=== PATIENT | male | born 1960 | race Caucasian/White ===

== ENCOUNTER 2020-12-27 08:31 | Outpatient (CLI) | payer OTHER, SELFPAY | END 2020-12-27 08:32 | disposition home or self-care (01) | LOC: ANHCOVIDVC 08:31 | PROVIDERS: PCP Family Medicine | DX: Z23 Encounter for immunization (principal) | CPT/HCPCS: 0001A; 91300 ==

== ENCOUNTER 2021-01-17 08:29 | Outpatient (CLI) | payer OTHER, SELFPAY | END 2021-01-17 08:30 | LOC: ANHCOVIDVC 08:29 | PROVIDERS: PCP Family Medicine | DX: Z23 Encounter for immunization (principal) | CPT/HCPCS: 0002A; 91300 ==

== ENCOUNTER 2022-12-01 09:52 | Outpatient (CLI) | payer OTHER, SELFPAY ==
[2022-12-01 12:32] LABS: Kit Draw Collected
== END 2022-12-01 09:53 | disposition home or self-care (01) ==
LOC: ANHGOSHLAB 09:53
PROVIDERS: PCP Family Medicine; Visit Provider Family Medicine
DX: E78.2 Mixed hyperlipidemia (principal); R53.83 Other fatigue; R73.03 Prediabetes
CPT/HCPCS: 36415

== ENCOUNTER → 2023-12-14 11:20 | Outpatient (CLI) | payer OTHER, SELFPAY ==
--- NOTE | ~2023-12-14 | XR_ITS ---
Clinical Indication: Subacute cough PA and lateral views of the chest: Comparison: None Findings: The lungs are clear, without evidence of focal consolidation or pleural effusion. There is elevation of the left hemidiaphragm. Cardiomediastinal silhouette is within normal limits. Bones and soft tissues are unremarkable. Impression: Clear lungs. Elevation of left hemidiaphragm. Reviewed, dictated and finalized at location . CTION CONTROL RN Impression: Clear lungs. Elevation of left hemidiaphragm.
== END ==
PROVIDERS: PCP Family Medicine; Visit Provider Family Medicine
DX: J98.6 Disorders of diaphragm (principal); R05.2 Subacute cough
CPT/HCPCS: 71046

== ENCOUNTER 2025-03-22 13:29 | Outpatient (CLI) | payer OTHER, SELFPAY ==
--- NOTE | ~2025-03-22 | US_ITS ---
US arterial ankle brachial ind INDICATION: Peripheral vascular disease TECHNIQUE: Segmental pressures and plethysmographic and Doppler waveforms of the brachial and lower e xtremity arteries were obtained. COMPARISON: None. FINDINGS: Right and left brachial artery pressures of 128 mm Hg and 136 mm Hg, respectively, are concordant (no rmal difference <= 30 mmHg). The right ankle-brachial index (SHALINI) is 1.29 (normal >= 0.9-1.0). The right great toe-brachial index (TBI) is 0.66 (normal >= 0.60). The left SHALINI is 1.22. The left TBI is 0.54. IMPRESSION: 1. Normal ankle-brachial indices. 2: Diminished left toe brachial index consistent with mild peripheral arterial disease. Reviewed, dictated and finalized at location A.
== END 2025-03-22 13:30 | disposition home or self-care (01) ==
PROVIDERS: PCP Family Medicine; Visit Provider Family Medicine
DX: R93.6 Abnormal findings on diagnostic imaging of limbs (principal); R09.89 Other specified symptoms and signs involving the circulatory and respiratory systems; R25.2 Cramp and spasm; G57.93 Unspecified mononeuropathy of bilateral lower limbs
CPT/HCPCS: 93922

== ENCOUNTER 2025-06-04 08:05 | Day surgery (SDC) | payer OTHER, SELFPAY ==
[2025-01-23 13:41] VITALS: BMI 32.1
[2025-06-04 09:05] VITALS: BP 145/98; PULSE 70; RESP 18; TEMP 37; O2SAT 94
[2025-06-04] MEDS: LACTATED RINGERS 1,000 ML 150 ML IV CONT (09:30)
[2025-06-04 09:35] VITALS: BMI 30.2
--- NOTE | 2025-06-04 09:53 | P.PNAN_ITS ---
Anes - Initial Pre Proc Eval Procedure: Operation Date: 06/04/25 10:00 Proposed Procedures p Screening Colonoscopy - Primo Tong MD Date/Time: 06/04/25 09:53 Surgeon: Primo Tong MD Pre Op Diagnosis: Neoplasm Screening Patient Data Age: 64 Gender: M Height: 1.85 m Weight: 103.9 kg Allergies Allergy/AdvReac Type Severity Reaction Status Date / Time lithium AdvReac Severe severe gi Verified 06/04/25 08:57 upset/pain Home Medications ?Medication ?Instructions ?Recorded ?Confirmed ?Type nsvwehpsixhp-sbabqbfk-xzwurk tablet 1 tablet PO DAILY 11/25/21 06/04/25 History omega 5-gtd-vrq-fish oil 1,000 mg 1 cap PO DAILY 11/25/21 06/04/25 History (120 mg-180 mg) capsule (Fish Oil) atorvastatin 10 mg tablet See Rx Instructions .Route 12/01/24 06/04/25 Rx .COMPLEX #90 tabs esomeprazole magnesium 40 mg 40 mg PO DAILY #90 caps 01/04/25 06/04/25 Rx capsule,delayed release (Nexium) cholecalciferol (vitamin D3) 50 50 mcg PO DAILY #30 caps 01/24/25 06/04/25 Rx mcg (2,000 unit) capsule cyanocobalamin (vitamin B-12) 1,000 mcg PO DAILY #30 caps 01/24/25 06/04/25 Rx 1,000 mcg capsule Patient hx anesthesia problems: none Family hx anesthesia problems: none Results Review: All pre-operative results and documents have been reviewed as part of the pre- operative evaluation. [facility] Past Medical History Medical History History of measles Blood type A+ Globus sensation Flatulence, eructation and gas pain Allergic rhinitis Surgical History Surgical History History of eye surgery (~1979) right History of carpal tunnel release Rt 1991, Lt 2018 Family History Family History Father Cerebrovascular accident, Onset Age: 56 Family history of malignant neoplasm of esophagus, Onset Age: 66 Alcohol abuse Other Hypertension Social History Social History Smoking status: Never smoker Alcohol intake: current Drinks per week: 1 Alcohol use details: socially Substance use: never Substance use type: does not use Do You Feel Safe in your Home?: Yes Lack of Transportation: No Lack of Food: Never True Current Housing: I Have Housing Concerned About Future Housing: No Difficulty Paying Gas/Electric Bills: No Difficulty Paying for Meds: No Currently Unemployed: No Education: Associate Degree Difficulty w/ Childcare or Family Care: No Living arrangements: with family Occupation/Education: unemployed Additional occupation/education comments: forcibly retired Gender identity (if verbalized by the patient): Male Sexual Orientation (if Verbalized by the Patient): Straight or Heterosexual Spiritual care concerns: No Anes - Eval Final PreProcedure Day of Procedure 06/04/25 09:53 Heart: regular rate and rhythm Lungs: clear to auscultation Airway: Mallampati scale class 1 Last oral intake: >/= 8 hours ASA classification: II Anesthetic plan: proceed Anesthesia type and monitoring: monitored anesthesia care Results Review: All pre-operative results and documents have been reviewed as part of the pre- operative evaluation. Informed Consent: The patient's anesthetic plan and its attendant risks and benefits were discussed with the patient/family/POA. Questions were solicited and answers provided to the satisfaction of the patient/family/POA.
--- NOTE | 2025-06-04 10:09 | HP_ITS ---
This report was moved to the correct visit on 06/06/2025. The original report was signed by Primo Tong MD on 06/04/25 1009. H&P: HPI History of Present Illness Date/Time: 06/04/25 10:08 Chief Complaint: History of colon polyps Narrative: The patient has a history of colonic polyps, the last colonoscopy was approximately 5 years ago Review of Systems Review of Systems: All systems reviewed & are unremarkable except as noted in HPI and below PMFSH Past Medical History Medical History History of measles Blood type A+ Globus sensation Flatulence, eructation and gas pain Allergic rhinitis Surgical History Surgical History History of eye surgery (~1979) rightHistory of carpal tunnel release Rt 1991, Lt 2018 Family History Family History Father Cerebrovascular accident, Onset Age: 56 Family history of malignant neoplasm of esophagus, Onset Age: 66 Alcohol abuseOther Hypertension Social History Social History Smoking status: Never smoker Alcohol intake: current Drinks per week: 1 Alcohol use details: socially Substance use: never Substance use type: does not use Do You Feel Safe in your Home?: Yes Lack of Transportation: No Lack of Food: Never True Current Housing: I Have Housing Concerned About Future Housing: No Difficulty Paying Gas/Electric Bills: No Difficulty Paying for Meds: No Currently Unemployed: No Education: Associate Degree Difficulty w/ Childcare or Family Care: No Living arrangements: with family Occupation/Education: unemployed Additional occupation/education comments: forcibly retired Gender identity (if verbalized by the patient): Male Sexual Orientation (if Verbalized by the Patient): Straight or Heterosexual Spiritual care concerns: No Meds Home Medications and Allergies Home Medications ?Medication ?Instructions ?Recorded ?Confirmed ?Type skfzbhrxcphl-ymtsnzud-mhmsmt tablet 1 tablet PO DAILY 11/25/21 06/04/25 History omega 8-eym-aow-fish oil 1,000 mg 1 cap PO DAILY 11/25/21 06/04/25 History (120 mg-180 mg) capsule (Fish Oil) atorvastatin 10 mg tablet See Rx Instructions .Route 12/01/24 06/04/25 Rx .COMPLEX #90 tabs esomeprazole magnesium 40 mg 40 mg PO DAILY #90 caps 01/04/25 06/04/25 Rx capsule,delayed release (Nexium) cholecalciferol (vitamin D3) 50 50 mcg PO DAILY #30 caps 01/24/25 06/04/25 Rx mcg (2,000 unit) capsule cyanocobalamin (vitamin B-12) 1,000 mcg PO DAILY #30 caps 01/24/25 06/04/25 Rx 1,000 mcg capsule Allergies Allergy/AdvReac Type Severity Reaction Status Date / Time lithium AdvReac Severe severe gi Verified 06/04/25 08:57 upset/pain Exam Const: General: cooperative and healthy appearing Resp: Effort & Inspection: normal respiratory effort and able to speak in complete sentences Auscultation: clear to auscultation bilaterally Cardio: Rate: regular rate Rhythm: regular rhythm GI: Inspection: normal to inspection GI Palp: No No hepatosplenomegaly present Auscultation: normal bowel sounds Rectal Exam: deferred Skin: General skin exam: normal color Psych: Appearance: grossly normal Mental Status: mental status grossly normal Assessment and Plan Assessment and plan (1) Personal history of colonic polyps: Code(s): Z86.010 - Personal history of colon polyps Status: Acute Assessment and Plan: The patient is deemed a good candidate for the procedure. Consent signed. Will proceed. Please be advised this is a medical document. It is intended for hrrc-uh-undg communication. It is written in medical language and may contain unfamiliar abbreviations or verbiage. Medical documents are intended to carry relevant information, facts as evident, and the clinical opinion of the practitioner at the time of the encounter. This report may have been done utilizing a voice recognition system. Attempts have been made to correct errors. However, there may be uncorrected grammatical, spelling, and recognition errors present. The file time of this note does not necessarily represent the time the patient was seen. Report Initialized date/time: Primo Tong MD 06/04/251008 Electronically signed by: Primo Tong MD 06/04/251008
--- NOTE | 2025-06-04 10:26 | WPDANESPN ---
Anes - Prog Note Post-Op Date/Time: 06/04/25 10:26 Pain Score (VAS): no Patient Feedback: Patient satisfied with anesthetic care.
--- NOTE | 2025-06-04 10:35 | WPDANESPN ---
Anes - Prog Note Post-Op Date/Time: 06/04/25 10:35 Pain Score (VAS): no Patient Feedback: Patient satisfied with anesthetic care.
--- NOTE | 2025-06-04 10:40 | WPDANESPN ---
Anes - Prog Note Post-Op Date/Time: 06/04/25 10:40 Pain Score (VAS): no Patient Feedback: Patient satisfied with anesthetic care.
[2025-06-04 10:46] VITALS: BP 127/81; PULSE 71; RESP 16; O2SAT 92
[2025-06-04 10:56] VITALS: BP 130/86; PULSE 67; RESP 16; O2SAT 96
[2025-06-04 11:06] VITALS: BP 136/86; PULSE 61; RESP 16; O2SAT 96
== END 2025-06-04 11:18 | disposition home or self-care (01) ==
PROVIDERS: PCP Family Medicine; Visit Provider Internal Medicine Gastroenterology
PROC: 0DJD8ZZ Inspection of Lower Intestinal Tract, Via Natural or Artificial Opening Endoscopic (ICD-10-PCS; CPT 45378; principal; 2025-06-04 10:00)
DX: Z12.11 Encounter for screening for malignant neoplasm of colon (principal); D12.2 Benign neoplasm of ascending colon; D12.3 Benign neoplasm of transverse colon; K63.5 Polyp of colon; K57.30 Diverticulosis of large intestine without perforation or abscess without bleeding
CPT/HCPCS: 45385

== ENCOUNTER 2025-06-04 10:54 | Outpatient (NON) | payer OTHER, SELFPAY ==
--- NOTE | 2025-06-04 | S_PTH ---
PATIENT: Robe Ontiveros LOC: [facility] U#:[id number] AGE/SX: 64/M ROOM: RE06/04/[address]: Primo Tong MD : 1960 BED: DIS: 06/04/2025 SPEC #: [id number] RECD: 06/05/25 08:44 STATUS: LIZZY REQ #: [id number] FREDRICK: 06/04/25 00:[address]: Primo Tong DEPT: [facility] Surgical RECD BY: Arely Kirk ENTERED: 06/05/25 08:46 SP TYPE: Surgical OTHR DR: Berta Fernandes MD Tissues: A - Colon Polypectomy B - Colon Polypectomy Procedures: Hematoxylin and Eosin Stain Gross and Microscopic Level 4 Comments: @ Originally on account #[id number] Req #[id number]
--- OUTSIDE RECORDS SUMMARY | 2025-06-05 11:45 | XMS_ITS | Patient Health Record ---
Author Organization [facility] [employer] Address [address] [place] [address] Care Team Providers Care Pasta Maker Name Role Phone Louis Tello Unavailable [phone] Reason For Referral No Information Medications Medication SIG (Take, Route, Frequency, Duration) Notes Start Date End Date Status Arthur Carbonate 150 MG Oral 08/21/2020 Active Fish Oil *Pick strength-form from [employer] for eRX* 08/21/2020 Active Atorvastatin Calcium 10 MG Oral 08/21/2020 Active Escitalopram Oxalate 5 MG Oral 08/21/2020 Active Immunizations Vaccine Route Administration Date Status Comme nts Influenza virus vaccine, quadrivalent (IIV4), split virus, 0.25 mL dosage Unknown 08/15/2019 Administered Plan Of Treatment No Information Insurance Providers Payer Name Payer Address Payer Phone Subscriber Number Group Number Insured Name Patient Relationship to Insured Coverage Start Date Coverage End Date [facility] [address] [place] [phone] [id number] ADELIA WATTS Spouse - patient is the spouse of the insured Medical (General) History Surgical History Surgery Date(Month/Year) Carpal tunnel surgery (26261)
== END 2025-06-04 10:55 | disposition home or self-care (01) ==
LOC: ANHLAB 06-05 10:55
PROVIDERS: PCP Family Medicine; Visit Provider Internal Medicine Gastroenterology
DX: D12.2 Benign neoplasm of ascending colon (principal); K63.89 Other specified diseases of intestine; K63.5 Polyp of colon; D12.3 Benign neoplasm of transverse colon
CPT/HCPCS: 88305

== ENCOUNTER 2025-06-30 17:35 | Emergency (ER) | payer OTHER, SELFPAY ==
--- NOTE | ~2025-06-30 | XR_ITS ---
EXAMINATION: XR ankle RT min 3V DATE: 06/30/2025 17:58 INDICATION: Postmenopausal lateral right ankle pain and swelling TECHNIQUE: Anteroposterior, oblique, mortise, and lateral views of the right ankle were obtained. COMPARISON: None. FINDINGS: Alignment is normal. No fracture. Joint spaces are well maintained. There are a couple tiny heterotopic ossicles near the tips of the medial and lateral malleoli consistent with sequela of chronic ankle sprains. Small Achilles and plantar calcaneal spurs. No ankle joint effusion. Soft tissue swelling about the lateral malleolus. IMPRESSION: 1. No acute osseous abnormality. Reviewed, dictated and finalized at location A.
[2025-06-30 17:36] VITALS: BP 140/77; PULSE 83; RESP 16; TEMP 36.1; O2SAT 97
--- NOTE | 2025-06-30 17:46 | ED_ITS ---
HPI - Extremity Injury (Lower) General Chief Complaint: Extremity Injury, Lower Stated Complaint: INJURED R ANKLE Time Seen by Provider: 06/30/25 17:46 Source: patient Mode of arrival: ambulatory Limitations: no limitations History of Present Illness HPI Narrative: 63-year-old male presented for complaint of right ankle pain and swelling following injury today. He states he stepped off of a tractor and rolled the ankle at 1100. Has taken norco. Denies deformity, numbness, tingling or weakness. has been able to bear weight but reports pain. Related Data Home Medications ?Medication ?Instructions ?Recorded ?Confirmed ?Last Taken ?Type xxqtmjqafqni-rsgttuno-xxohgq tablet 1 tablet PO DAILY 11/25/21 06/30/25 06/03/25 History omega 2-jyl-kgx-fish oil 1,000 mg 1 cap PO DAILY 11/2506/30/25 06/03/25 History (120 mg-180 mg) capsule (Fish Oil) losartan 25 mg tablet mg 06/30/25 Unknown History Allergies Allergy/AdvReac Type Severity Reaction Status Date / Time lithium AdvReac Severe severe gi Verified 06/30/25 17:47 upset/pain Review of Systems Review of Systems: CONSTITUTIONAL: Denies body aches, fever, chills EYES: Denies visual changes ENT: Denies rhinorrhea, congestion CARDIOVASCULAR: Denies chest pain, palpitations, or edema. RESPIRATORY: Denies cough or dyspnea. SKIN: Denies rash, itching, or wounds. MUSCULOSKELETAL: reports right ankle pain and swelling NEUROLOGIC: Denies headache, numbness, tingling, or weakness. All systems reviewed & are unremarkable except as noted in HPI and below PMFSH Past Medical History Medical History History of measles Blood type A+ Globus sensation Flatulence, eructation and gas pain Allergic rhinitis Surgical History Surgical History History of eye surgery (~1979) right History of carpal tunnel release Rt 1991, Lt 2018 Family History Family History Father Cerebrovascular accident, Onset Age: 56 Family history of malignant neoplasm of esophagus, Onset Age: 66 Alcohol abuse Other Hypertension Social History Social History Smoking status: Never smoker Alcohol intake: current Drinks per week: 1 Alcohol use details: socially Substance use: never Substance use type: does not use Do You Feel Safe in your Home?: Yes Lack of Transportation: No Lack of Food: Never True Current Housing: I Have Housing Concerned About Future Housing: No Difficulty Paying Gas/Electric Bills: No Difficulty Paying for Meds: No Currently Unemployed: No Education: Associate Degree Difficulty w/ Childcare or Family Care: No Living arrangements: with family Occupation/Education: unemployed Additional occupation/education comments: forcibly retired Gender identity (if verbalized by the patient): Male Sexual Orientation (if Verbalized by the Patient): Straight or Heterosexual Spiritual care concerns: No Comments At time of signature, I have reviewed and agree with nursing past medical, surgical, social and family history unless otherwise noted. Please see nursing chart for further information. There is no relevant family history pertinent to the presenting complaint Exam Narrative: GENERAL: Well-appearing CHEST: Speaks in full sentences. No respiratory distress. HEART: Regular rate and rhythm. Normal and equal peripheral pulses. EXTREMITIES: Right foot has normal strength and sensation, slightly decreased ankle range of motion due to pain with movement. Right lateral ankle with large amount of swelling. No ecchymosis, No point tenderness. No open wounds, or obvious deformity; pulse palpable and equal bilaterally, skin warm, dry, pink. Capillary refill less than 3 seconds. SKIN: Warm, dry NEURO: Alert and oriented x3. PSYCH: Normal mood and affect Course Course Emergency Course: Patient is aware of diagnosis, understands and agrees to treatment plan. Anticipatory guidance given. Patient agrees to follow-up as directed and is aware of reasons to seek care at the emergency department. Portions of this record may have been created with voice recognition software Level of Care: Express Care Visit Vital Signs Vital signs: Vital Signs Temperature 97 F L 06/30/25 17:36 Pulse Rate 83 06/30/25 17:36 Respiratory Rate 16 06/30/25 17:36 Blood Pressure 140/77 06/30/25 17:36 Pulse Oximetry 97 06/30/25 17:36 Temperature 97 F L 06/30/25 17:36 Pulse Rate 83 06/30/25 17:36 Respiratory Rate 16 06/30/25 17:36 Blood Pressure 140/77 06/30/25 17:36 Pulse Oximetry 97 06/30/25 17:36 Reviewed MDM - Extremity Injury (Lower) MDM Narrative Medical decision making narrative: Discussed physical exam findings and xray. CEDRICK applied. Advised supportive measures and signs/symptoms to go to the ER at length. Pt is appropriate for outpt treatment and f/u. Differential Diagnosis Differential diagnosis: Likely ankle sprain and strain and ankle fracture Imaging Data Radiologist's impression: Patient: Robe Ontiveros : 1960 MR#: [id number] Age: 64 Acct:[id number] Loc: [facility] ADM Date: 06/30/25Attending Dr: EXAMINATION: XR ankle RT min 3V DATE: 06/30/2025 17:58 INDICATION: Postmenopausal lateral right ankle pain and swelling TECHNIQUE: Anteroposterior, oblique, mortise, and lateral views of the right ankle were obtained. COMPARISON: None. FINDINGS: Alignment is normal. No fracture. Joint spaces are well maintained. There are a couple tiny heterotopic ossicles near the tips of the medial and lateral malleoli consistent with sequela of chronic ankle sprains. Small Achilles and plantar calcaneal spurs. No ankle joint effusion. Soft tissue swelling about the lateral malleolus. IMPRESSION: 1. No acute osseous abnormality. Discharge Plan Discharge Clinical Impression: Ankle sprain and strain Patient Disposition: Home Condition: Stable Instructions: Antibiotic Form, Ankle Sprain (ED) Additional Instructions: An ankle sprain is an injury to?ligaments, the tough, elastic bands of tissue that connect bones to other bones to stabilize the joint.?Ankle sprains occur when these ligaments are stretched beyond their normal range of motion, often due to a sudden twist or roll of the ankle.?A?strain affects tendons,?which connect muscle to bone. Rest; avoid excessive walking, running or jumping etc until symptoms are resolved, bear weight as tolerated Ice and elevate the right leg; Apply ice 15-20 minute intervals several times a day Keep it wrapped with CEDRICK or use a soft ankle splint Motrin 800mg every 8 hours, alternate with Tylenol 1000mg every 8 hours as needed Follow up with your primary care provider and/or network management specialist as needed Go to the ER for worsening symptoms or concerns. Patient Language: Turkish Prescriptions: New ibuprofen 800 mg tablet 800 mg PO TID PRN (Reason: pain) Qty: 15 0RF No Action losartan 25 mg tablet omega 3-axl-jcr-fish oil [Fish Oil] 1,000 mg (120 mg-180 mg) capsule 1 cap PO DAILY rapbxypippfw-mdavqfgi-fktiro Tablet 1 tablet PO DAILY atorvastatin 10 mg tablet See Rx Instructions .ROUTE .COMPLEX Qty: 90 1RF Dose Instruction: TAKE 1 TABLET BY MOUTH EVERY DAY Rx Instructions: TAKE 1 TABLET BY MOUTH EVERY DAY esomeprazole magnesium [Nexium] 40 mg capsule,delayed release(DR/EC) 40 mg PO DAILY Qty: 90 3RF cholecalciferol (vitamin D3) 50 mcg (2,000 unit) capsule 50 mcg PO DAILY Qty: 30 5RF cyanocobalamin (vitamin B-12) 1,000 mcg capsule 1,000 mcg PO DAILY Qty: 30 8RF Follow-up/Referrals: Berta Fernandes MD [Primary Care Provider, [facility]] Time of Disposition: 18:26
== END 2025-06-30 18:30 | disposition home or self-care (01) ==
PROVIDERS: Emergency Provider Nurse Practitioner Family; PCP Family Medicine
DX: S93.401A Sprain of unspecified ligament of right ankle, initial encounter (principal); S96.911A Strain of unspecified muscle and tendon at ankle and foot level, right foot, initial encounter; X50.9XXA Other and unspecified overexertion or strenuous movements or postures, initial encounter
CPT/HCPCS: 73610; 99213; G0463

== ENCOUNTER 2025-09-23 11:20 | Emergency (ER) | payer OTHER, SELFPAY ==
--- NOTE | ~2025-09-23 | XR_ITS ---
Examination: XR finger 1st LT min 2V Clinical History: screw through finger 10 days ago. Comparison: None Technique: 3 views left first finger Findings/impression: 1. Tiny thin radiopaque foreign body within palmar soft tissues along distal tuft. 2. Thin short radiopaque foreign body within soft tissue between first and second metacarpals. 3. No acute bony abnormality. 4. No subcutaneous emphysema to suggest abscess. Reviewed, dictated and finalized at location [facility]
[2025-09-23 11:30] VITALS: BP 146/87; PULSE 85; RESP 16; TEMP 36.6; O2SAT 98
--- NOTE | 2025-09-23 11:45 | ED.UPPEXIN ---
HPI - Extremity Injury (Upper) General Chief Complaint: Extremity Injury, Upper Stated Complaint: L THUMB INJURY Time Seen by Provider: 09/23/25 11:32 Source: patient and RN notes reviewed Mode of arrival: ambulatory Limitations: no limitations History of Present Illness HPI narrative: Patient presents today with an injury to his left thumb. He was using an electric screwdriver 10 days ago when the head of the screwdriver slipped off the screw and sunk into his fingernail, injuring his finger. Since that time, patient has been cleaning the wound 3-4x/day with peroxide and keeping it covered. States he has been having purulent discharge and over the last few days, which stopped 4 days ago, the pain had increased and the finger had started to swell, which has lead to decreased sleep. Reports today the swelling has improved some. He took a left over [place] last night that he had at home so he could sleep, which helped slightly. Related Data Home Medications ?Medication ?Instructions ?Recorded ?Confirmed ?Last Taken ?Type rcdjonmgyqjr-tiirfuqz-pmetcv tablet 1 tablet PO DAILY 11/25/21 09/23/25 06/03/25 History omega 4-fzk-fff-fish oil 1,000 mg 1 cap PO DAILY 11/25/21 09/23/25 06/03/25 History (120 mg-180 mg) capsule (Fish Oil) Allergies Allergy/AdvReac Type Severity Reaction Status Date / Time lithium AdvReac Severe severe gi Verified 09/23/25 11:55 upset/pain PMFSH Past Medical History Medical History History of measles Blood type A+ Globus sensation Flatulence, eructation and gas pain Allergic rhinitis Surgical History Surgical History History of eye surgery (~1979) right History of carpal tunnel release Rt 1991, Lt 2018 Family History Family History Father Cerebrovascular accident, Onset Age: 56 Family history of malignant neoplasm of esophagus, Onset Age: 66 Alcohol abuse Other Hypertension Social History Social History Smoking status: Never smoker Alcohol intake: current Drinks per week: 1 Alcohol use details: socially Substance use: never Substance use type: does not use Lack of Transportation: No Lack of Food: Never True Current Housing: I Have Housing Concerned About Future Housing: No Difficulty Paying Gas/Electric Bills: No Difficulty Paying for Meds: No Currently Unemployed: No Education: Associate Degree Difficulty w/ Childcare or Family Care: No Living arrangements: with family Occupation/Education: unemployed Additional occupation/education comments: forcibly retired Gender identity (if verbalized by the patient): Male Sexual Orientation (if Verbalized by the Patient): Straight or Heterosexual Spiritual care concerns: No Comments At time of signature, I have reviewed and agree with nursing past medical, surgical, social and family history unless otherwise noted. Please see nursing chart for further information. There is no relevant family history pertinent to the presenting complaint Exam Narrative: GENERAL: Well-appearing, well-nourished, and in no acute distress. HEAD: Normocephalic, atraumatic. EYES: EOMI. No redness or drainage. Conjunctivae normal. ENT: Mucous membranes pink and moist. NECK: Normal AROM. CHEST: No respiratory distress. EXTREMITIES: Left thumb: Injury to lateral side of nail. Moderate erythema and edema to the lateral aspect of thumb. Neurovascularly intact. AROM of the thumb somewhat limited due to pain and swelling. SKIN: Warm, dry, no rash. Capillary refill normal. Normal skin turgor. NEURO: No focal deficits. Alert and oriented x3. Gait steady. PSYCH: Normal affect. No signs of depression or anxiety. Course Course Level of Care: Express Care Visit Vital Signs Vital signs: Vital Signs Temperature 98 F 09/23/25 11:30 Pulse Rate 85 09/23/25 11:30 Respiratory Rate 16 09/23/25 11:30 Blood Pressure 146/87 H 09/23/25 11:30 Pulse Oximetry 98 09/23/25 11:30 Temperature 98 F 09/23/25 11:30 Pulse Rate 85 09/23/25 11:30 Respiratory Rate 16 09/23/25 11:30 Blood Pressure 146/87 H 09/23/25 11:30 Pulse Oximetry 98 09/23/25 11:30 Reviewed MDM - Extremity Injury (Upper) MDM Narrative Medical decision making narrative: Patient presents today with an injury to his left thumb. He was using an electric screwdriver 10 days ago when the head of the screwdriver slipped off the screw and sunk into his fingernail, injuring his finger. Since that time, patient has been cleaning the wound 3-4x/day with peroxide and keeping it covered. States he has been having purulent discharge and over the last few days the pain had increased and the finger had started to swell, which has lead to decreased sleep. Reports today the swelling has improved some. He took a left over [place] last night that he had at home so he could sleep, which helped slightly. Upon exam, Injury to lateral side of nail. Moderate erythema and edema to the lateral aspect of thumb. Neurovascularly intact. AROM of the thumb somewhat limited due to pain and swelling. Xray shows, Findings/impression: 1. Tiny thin radiopaque foreign body within palmar soft tissues along distal tuft. 2. Thin short radiopaque foreign body within soft tissue between first and second metacarpals. 3. No acute bony abnormality. 4. No subcutaneous emphysema to suggest abscess. . Discussed xray results with pt. 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 Will start patient on a course of Keflex with strong recommendation to follow-up with hand specialist. Patient agrees with plan. Vital signs stable. Anticipatory guidance given. Differential Diagnosis Differential diagnosis: Likely other (cellulitis, abscess, osteomyelitis, fracture) Imaging Data Radiologist's impression: Findings/impression: 1. Tiny thin radiopaque foreign body within palmar soft tissues along distal tuft. 2. Thin short radiopaque foreign body within soft tissue between first and second metacarpals. 3. No acute bony abnormality. 4. No subcutaneous emphysema to suggest abscess. Reviewed, dictated and finalized at location [facility] Critical Care Time Critical Care Time Critical Care Time: No Discharge Plan Discharge Clinical Impression: Cellulitis of left thumb Patient Disposition: Home Condition: Stable Instructions: Antibiotic Form, Cellulitis (ED) Additional Instructions: Your x-ray shows that there is no infection in the bone or abscess at this time. Please start the Keflex and take as directed until gone. Wash with soap and water daily and keep covered if the fingernail continues to snag. Please call and schedule an appointment with the hand specialist as soon as possible. As discussed, if you start running a fever greater than 100.3 or if you notice any red streaking up your arm or worsening of the redness or swelling in your thumb, please go to the ER immediately for further evaluation. Patient Language: Filipino Prescriptions: New cephalexin 500 mg capsule 500 mg PO Q6H 7 Days Qty: 28 0RF No Action ibuprofen 800 mg tablet 800 mg PO TID PRN (Reason: pain) Qty: 15 0RF omega 0-tyk-dyn-fish oil [Fish Oil] 1,000 mg (120 mg-180 mg) capsule 1 cap PO DAILY zqwbydkpecas-fwilxqtr-pzuvzm Tablet 1 tablet PO DAILY esomeprazole magnesium [Nexium] 40 mg capsule,delayed release(DR/EC) 40 mg PO DAILY Qty: 90 3RF cholecalciferol (vitamin D3) 50 mcg (2,000 unit) capsule 50 mcg PO DAILY Qty: 30 5RF cyanocobalamin (vitamin B-12) 1,000 mcg capsule 1,000 mcg PO DAILY Qty: 30 8RF atorvastatin 10 mg tablet See Rx Instructions .ROUTE .COMPLEX Qty: 90 1RF Dose Instruction: TAKE 1 TABLET BY MOUTH EVERY DAY Rx Instructions: TAKE 1 TABLET BY MOUTH EVERY DAY losartan 25 mg tablet 25 mg PO DAILY Qty: 90 1RF Follow-up/Referrals: Analy Mcnair MD [Physician, Plastic Surgery] Berta Fernandes MD [Primary Care Provider, Family Practice] Time of Disposition: 12:26
== END 2025-09-23 12:31 | disposition home or self-care (01) ==
PROVIDERS: Emergency Provider Nurse Practitioner; PCP Family Medicine
DX: L03.012 Cellulitis of left finger (principal)
CPT/HCPCS: 73140; 99213; G0463

== ENCOUNTER 2025-09-27 09:01 | Emergency (ER) | payer OTHER, SELFPAY ==
[2025-09-27 09:07] VITALS: BP 144/87; PULSE 65; RESP 16; TEMP 36.5; O2SAT 97
--- OUTSIDE RECORDS SUMMARY | 2025-09-27 09:39 | XMS_ITS | Patient Health Record ---
Author Organization [facility] Address [address] [place] [address] Care Team Providers Care Claims Supervisor Name Role Phone Louis Tello Unavailable [phone] Reason For Referral No Information Medications Medication SIG (Take, Route, Frequency, Duration) Notes Start Date End Date Status Mayview Carbonate 150 MG Capsule Oral 08/21/2020 Active Fish Oil *Pick strength-form from [employer] for eRX* 08/21/2020 Active Atorvastatin Calcium 10 MG Tablet Oral 08/21/2020 Active Escitalopram Oxalate 5 MG Tablet Oral 08/21/2020 Active Immunizations Vaccine Route Administration Date Status Comme nts Influenza virus vaccine, quadrivalent (IIV4), split virus, 0.25 mL dosage Unknown 08/15/2019 Administered Social History Social History Additional Details Category Social Info Options Details Migrated Social History Migrated Social History Alcohol Intake: Occasional 07/15/2020,Tobacco Years: Never smoker 07/15/2020 Plan Of Treatment No Information Insurance Providers Payer Name Payer Address Payer Phone Subscriber Number Group Number Insured Name Patient Relationship to Insured Coverage Start Date Coverage End Date [facility] [address] [place] [phone] [id number] ADELIA WATTS Spouse - patient is the spouse of the insured Medical (General) History Surgical History Surgery Date(Month/Year) Carpal tunnel surgery (70236)
--- NOTE | 2025-09-27 09:46 | ED.WOUNDLAC ---
HPI - Wound/Laceration General Chief Complaint: Wound/Laceration Stated Complaint: L THUMB INJURY Time Seen by Provider: 09/27/25 09:08 Source: patient and old records reviewed Mode of arrival: ambulatory Limitations: no limitations History of Present Illness HPI narrative: Patient is a 65 y/o male who presents the ED with concern for infection to his left thumb. Patient reports he had a screw gun go through his left thumbnail around 2 weeks ago. He has since developed redness, swelling, pain of the thumb surrounding the nail. States he began to look worse on Wednesday and had purulent drainage. Was seen at an urgent care and prescribed Keflex. X-rays were negative for osseous involvement at that time. Tetanus is up-to-date. Patient reports he has been taking antibiotics as prescribed but last night he began having increased swelling, abscess formation to left thumb. He poked a hole in the abscess at home and had a large amount of purulent drainage. Was referred to Dr. Mcnair but is unable to be seen until Wednesday. Denies fevers. Related Data Home Medications ?Medication ?Instructions ?Recorded ?Confirmed ?Last Taken ?Type jjfyaavypjlb-mextnlwx-jhlzji tablet 1 tablet PO DAILY 11/25/21 09/23/25 06/03/25 History omega 3-pjy-lgk-fish oil 1,000 mg 1 cap PO DAILY 11/25/21 09/23/25 06/03/25 History (120 mg-180 mg) capsule (Fish Oil) Allergies Allergy/AdvReac Type Severity Reaction Status Date / Time lithium AdvReac Severe severe gi Verified 09/27/25 09:16 upset/pain Review of Systems Review of Systems: All systems reviewed & are unremarkable except as noted in HPI. All systems reviewed & are unremarkable except as noted in HPI and below PMFSH Past Medical History Medical History History of measles Blood type A+ Globus sensation Flatulence, eructation and gas pain Allergic rhinitis Surgical History Surgical History History of eye surgery (~1979) right History of carpal tunnel release Rt 1991, Lt 2018 Family History Family History Father Cerebrovascular accident, Onset Age: 56 Family history of malignant neoplasm of esophagus, Onset Age: 66 Alcohol abuse Other Hypertension Social History Social History Smoking status: Never smoker Alcohol intake: current Drinks per week: 1 Alcohol use details: socially Substance use: never Substance use type: does not use Lack of Transportation: No Lack of Food: Never True Current Housing: I Have Housing Concerned About Future Housing: No Difficulty Paying Gas/Electric Bills: No Difficulty Paying for Meds: No Currently Unemployed: No Education: Associate Degree Difficulty w/ Childcare or Family Care: No Living arrangements: with family Occupation/Education: unemployed Additional occupation/education comments: forcibly retired Gender identity (if verbalized by the patient): Male Sexual Orientation (if Verbalized by the Patient): Straight or Heterosexual Spiritual care concerns: No Exam Narrative: GENERAL: Well appearing, well-nourished, non-toxic, in no acute distress. HEAD: Normocephalic, atraumatic. RESPIRATORY: Airway patent, respirations nonlabored. CARDIOVASCULAR: Regular rate and rhythm MUSCULOSKELETAL: Moves all extremities. Moderate swelling/redness/bruising to L dorsal thumb. Deformity of lateral L thumb nail without drainage. Focal fluctuance and tenderness extending from base of cuticle near IP joint on dorsal thumb. There is a pinpoint area perineal and drainage from this region. Sensation intact. Capillary refill intact SKIN: Warm, dry, normal color. NEURO: A&O X3. Speech clear. No ataxic movements. PSYCHIATRIC: Appropriate mood and affect. Normal interaction. Course Vital Signs Vital signs: Vital Signs Temperature 97.7 F 09/27/25 09:07 Pulse Rate 65 09/27/25 09:07 Respiratory Rate 16 09/27/25 09:07 Blood Pressure 144/87 H 09/27/25 09:07 Pulse Oximetry 97 09/27/25 09:07 Oxygen Delivery Room Air 09/27/25 09:07 Temperature 97.7 F 09/27/25 09:07 Pulse Rate 65 09/27/25 09:07 Respiratory Rate 16 09/27/25 09:07 Blood Pressure 144/87 H 09/27/25 09:07 Pulse Oximetry 97 09/27/25 09:07 Oxygen Delivery Room Air 09/27/25 09:07 MDM MDM Narrative Medical decision making narrative: Exam consistent with abscess of left thumb. There is a small area that does appear to be draining purulence fluid. Wound culture was obtained. I did numb area and make small incision to open up area of drainage. Only trace amount of purulent fluid expressed. Wound was irrigated. Records reviewed from urgent care. X-ray did not show any osseous involvement. Patient's tetanus status is up-to-date. Patient was placed on Keflex several days ago. Feel he would benefit from MRSA coverage antibiotics. Has plans to see Dr. Mcnair in office on Wednesday. Patient is otherwise hemodynamically stable. No evidence of systemic infection. Afebrile here. I discussed case with Dr. Mcnair, hand/plastic surgery, agrees with plan was starting on clindamycin or Bactrim. Recommended to give dose of IV vancomycin now, recommended 3 times a day warm water/peroxide/Betadine soaks. Will see in office on Wednesday. Patient is in agreement this plan. He feels comfortable going home on the new antibiotics. I discussed very strict return precautions should symptoms worsen over the weekend. Patient in agreement. Discharged in stable condition. Differential Diagnosis Differential Diagnosis: Abscess, cellulitis, felon, paronychia, finger fracture Medical Records I have reviewed the following patient records and this information was taken into consideration when formulating the assessment and plan.: previous labs, previous ER visits, previous hospitalizations and previous clinic visits Lab Data [facility] Lab Attestation statement: I personally reviewed the patient's lab results. Discharge Plan Discharge Clinical Impression: Abscess of left thumb Patient Disposition: Home Condition: Stable Instructions: Antibiotic Form, Abscess (ED), Abscess Follow-up (ED) Additional Instructions: Take new antibiotics as prescribed. Keep wound clean and bandaged to prevent further contamination. Recommend warm water/peroxide/Betadine soaks 3 times per day. Follow-up closely with Dr. Mcnair at appointment on Wednesday. Return to the ED if you experience worsening or severe symptoms/swelling, persistent fevers, unable to keep down antibiotics, or any other symptoms of concern. Patient Language: Ukrainian Prescriptions: New clindamycin HCl [Cleocin HCl] 150 mg capsule 450 mg PO TID 7 Days Qty: 63 0RF No Action cephalexin 500 mg capsule 500 mg PO Q6H 7 Days Qty: 28 0RF ibuprofen 800 mg tablet 800 mg PO TID PRN (Reason: pain) Qty: 15 0RF omega 4-gbp-fxc-fish oil [Fish Oil] 1,000 mg (120 mg-180 mg) capsule 1 cap PO DAILY tchxvfnfxvzk-ugqsnmqp-rkiuyf Tablet 1 tablet PO DAILY esomeprazole magnesium [Nexium] 40 mg capsule,delayed release(DR/EC) 40 mg PO DAILY Qty: 90 3RF cholecalciferol (vitamin D3) 50 mcg (2,000 unit) capsule 50 mcg PO DAILY Qty: 30 5RF cyanocobalamin (vitamin B-12) 1,000 mcg capsule 1,000 mcg PO DAILY Qty: 30 8RF atorvastatin 10 mg tablet See Rx Instructions .ROUTE .COMPLEX Qty: 90 1RF Dose Instruction: TAKE 1 TABLET BY MOUTH EVERY DAY Rx Instructions: TAKE 1 TABLET BY MOUTH EVERY DAY losartan 25 mg tablet 25 mg PO DAILY Qty: 90 1RF Follow-up/Referrals: Analy Mcnair MD [Physician, Plastic Surgery] Referral Note: HAND SURGERY Berta Fernandes MD [Primary Care Provider, [facility]] Time of Disposition: 10:32
[2025-09-27] MEDS: VANCOMYCIN 1,500 MG/NS 500 ML BAG 250 MG IVPB (10:45)
[2025-09-27 13:39] VITALS: BP 139/78; PULSE 70; RESP 15; O2SAT 98
== END 2025-09-27 13:42 | disposition home or self-care (01) ==
PROVIDERS: Emergency Provider Physician Assistant; PCP Family Medicine
DX: L03.012 Cellulitis of left finger (principal)
CPT/HCPCS: 87070; 87147; 87186; 96365; 96366; 99284; J2003; J3373